=== PATIENT | male | born 1940 | race American Indian/Alaskan Native ===

== ENCOUNTER 2017-09-02 09:05 | Day surgery (SDC) | payer MEDICARE, OTHER ==
[~2017-09-02 09:05] MED LIST: MARCAINE 0.5% INFILTRATI ONE; NACL 0.9% 1000 ML 1,000 ML IV SCH; PEPCID PO NR
--- NOTE | 2017-09-02 09:54 | Anesthesia Consultation ---
Anesthesia Consult and Med Hx Date of service: 09/02/17 - Airway Anesthetic Teeth Evaluation: Bridges, Partials ROM Head & Neck: Adequate Mental/Hyoid Distance: Adequate Mallampati Class: Class II Intubation Access Assessment: Probably Good - Pulmonary Exam CTA: Yes - Cardiac Exam Cardiac Exam: RRR - Pre-Operative Health Status ASA Pre-Surgery Classification: ASA3 Proposed Anesthetic Plan: General - Pulmonary Hx Smoking: No Hx Respiratory Symptoms: Yes (h/o bronchitis) Hx Sleep Apnea: Yes (DX SLEEP APNEA , NO CPAP USE.) - Cardiovascular System Hx Hypertension: Yes (X 20 YRS) - Central Nervous System Hx Back Pain: Yes (BACK PAIN TO LEGS) - Gastrointestinal Hx Gastroesophageal Reflux Disease: Yes - Other Systems Hx Cancer: No - Additional Comments Anesthesia Medical History Comments: HLD, BPH. Informed consent obtained
--- NOTE | 2017-09-02 09:55 | Anesthesia Day of Surgery ---
Anesthesia Day of Surgery - Day of Surgery Patient Examined: Yes Patient H&P Reviewed: Yes Patient is NPO: Yes
[2017-09-02] MEDS ORDERED: PEPCID IV NR (10:00)
[2017-09-02] MEDS ORDERED: NACL 0.9% 1000 ML 1,000 ML IV SCH (10:00)
[2017-09-02] MEDS ORDERED: MARCAINE 0.5% 30 ML INFILTRATI ONE (10:25)
[2017-09-02] MEDS ORDERED: NEOSPORIN GU IR ONE ×2 (10:25→11:38)
[2017-09-02] MEDS ORDERED: DIPRIVAN 10 MG/ML IV ONE (10:38)
[2017-09-02] MEDS ORDERED: DILAUDID ONE (10:39)
[2017-09-02] MEDS: ANCEF/STERILE WATER 2 GM/20 ML IV NR ×2 (10:40→10:41)
[2017-09-02] MEDS ORDERED: MARCAINE 0.5% INFILTRATI ONE (11:55)
[2017-09-02] MEDS ORDERED: ZOFRAN ONE (12:01)
[2017-09-02] MEDS ORDERED: VERSED ONE (12:01)
[2017-09-02] MEDS ORDERED: NEOSTIGMINE ONE (12:01)
[2017-09-02] MEDS ORDERED: ROBINUL ONE (12:01)
[2017-09-02] MEDS ORDERED: ZEMURON IV ONE (12:01)
[2017-09-02] MEDS ORDERED: QUELICIN ONE (12:01)
[2017-09-02] MEDS ORDERED: XYLOCAINE MPF 2% ONE (12:01)
--- NOTE | 2017-09-02 12:15 | Short Stay Summary ---
Short Stay Documentation Date of service: 09/02/17 - History H&P: obtained from office - Allergies and Medications Current Medications: Allergies No Known Allergies Allergy (Verified 08/22/17 10:59) Home Medications Medication Instructions Recorded Confirmed Last Taken Type Cholecalciferol (Vitamin D3) 2,000 unit PO DAILY 08/22/17 09/02/17 08/30/17 17: 00 History [Vitamin D3] Finasteride [Proscar] 5 mg PO DAILY 08/22/17 09/02/17 09/01/17 19:00 History Multivit-Min/FA/Lycopen/Lutein 1 each PO DAILY 08/22/17 09/02/17 08/30/17 17:00 History [Centrum Silver Tablet] Simvastatin [Zocor TAB] 10 mg PO QHS 08/22/17 09/02/17 08/31/17 21:00 History Terazosin [Hytrin] 5 mg PO BID 08/22/17 09/02/17 09/02/17 06:00 History Zolpidem [Ambien] 10 mg PO QHS 08/22/17 09/02/17 08/28/17 22:00 History Active Medications Famotidine (Pepcid) 20 mg PO PREOP NR Stop: 09/02/17 23:59 Last Admin: 09/02/17 10:36 Dose: 20 mg Famotidine (Pepcid) 20 mg IV PREOP NR Stop: 09/02/17 23:59 Hydromorphone HCl (Dilaudid) 0.25 mg IV Q10MIN PRN PRN Reason: Pain, Moderate (4-6) Stop: 09/02/17 20:00 Sodium Chloride (Nacl 0.9% 1000 Ml) 1,000 mls @ 75 mls/hr IV DIRECT KEYLA - Brief post op/procedure progress note Date of procedure: 09/02/17 Pre-op diagnosis: rt hernia Post-op diagnosis: same Procedure: hernia repair with mesh Anesthesia: AZA Surgeon: KENYON FRYE Estimated blood loss: minimal Pathology: list (sac) Specimen disposition: to lab Condition: stable - Hospital course Hospital course: norco & post op info on chart - Disposition Condition at discharge: Stable Disposition: DC-01 TO HOME OR SELFCARE Short Stay Discharge Plan Follow up with: KELLEN PINA MD [Primary Care Provider] - 7 Days
[2017-09-02] MEDS: DILAUDID IV PRN ×2 (12:45→12:53)
[2017-09-02] MEDS ORDERED: DILAUDID IV PRN ×2 (13:22→14:00)
--- NOTE | 2017-09-02 13:22 | Post Anesthesia Evaluation ---
- Post Anesthesia Evaluation Patient Participated: Yes Airway Patent: Yes Stable Respiratory Function: Yes Nausea/Vomiting: No Temp > 96.8F: Yes Pain Manageable: Yes Adequeate Hydration: Yes Anesthesia Complications: No Block Receding Appropriately: Not Applicable Patient on Ventilator: No
--- NOTE | 2017-09-02 13:43 | Operative Report ---
PREOPERATIVE DIAGNOSIS: Right inguinal hernia. POSTOPERATIVE DIAGNOSIS: Right inguinal hernia. PROCEDURE: Right inguinal hernia repair with mesh. SURGEON: Gregorio Bradford MD ANESTHESIA: General. ESTIMATED BLOOD LOSS: Minimal. FLUIDS: Crystalloid. COMPLICATIONS: No complications. INDICATIONS: This 76-year-old gentleman seen in the office for scrotal pain as well as a history of back pain. Exam was consistent with right reducible golf ball size hernia. Risks, benefits, and complications were explained. The patient agreed to proceed with surgical intervention. DESCRIPTION OF PROCEDURE: The patient was taken to the operative suite, placed in a supine position. After adequate general anesthesia, he was prepped and draped in a sterile fashion. A right inguinal incision was made with the Bovie. Sharp dissection was taken down to the external oblique fascia. Spermatic cord was isolated. Fascia was opened in length of the incision. Ilioinguinal nerve could not be appreciated. Dissection revealed a hernia sac. No bowel was in the sac. It was dissected. A 0 silk suture ligature was used to close the sac. Specimen was sent for routine pathologic evaluation. Keyhole mesh was placed in the floor of the hernia. Shelving edge of Poupart's ligament was attached using 2-0 Ethibond in interrupted fashion as well as the conjoined tendon using 2-0 Ethibond in interrupted fashion. Copious irrigation was performed. Adequate hemostasis was achieved. Vas deferens and the spermatic cord uninjured. Subcutaneous tissue was injected with 0.25% Marcaine. External oblique fascia was closed with 2-0 Ethibond in interrupted fashion. Sona's fascia was closed with 3-0 Vicryl in a running fashion, hank on the skin, a dressing was placed. The patient tolerated the procedure well and was extubated and taken to recovery room. He will go home on [place] and follow up in the office. JOB# [id number] Cristel/SUSY
[2017-09-02] MEDS ORDERED: NORCO 5/325 PO PRN (13:45)
[2017-09-02] MEDS ORDERED: TORADOL IV ONE (15:06)
[2017-09-02] MEDS ORDERED: TORADOL IV NR (15:13)
[2017-09-02] MEDS ORDERED: NORCO 5/325 PO ONE (17:40)
[2017-09-02 22:00] VITALS: BP 143/93
== END 2017-09-02 17:46 | disposition home or self-care (01) ==
LOC: OR 09:05
PROVIDERS: ATTEND Urology
DX: K40.90 Unilateral inguinal hernia, without obstruction or gangrene, not specified as recurrent (principal); K21.9 Gastro-esophageal reflux disease without esophagitis; I10 Essential (primary) hypertension; N40.0 Benign prostatic hyperplasia without lower urinary tract symptoms; G47.30 Sleep apnea, unspecified
CPT/HCPCS: 49505; 88302; C1781; J0330; J1170; J1885; J2250; J2405; J2704; J2710; J7030

== ENCOUNTER 2017-09-05 09:22 | Emergency (ER) | payer MEDICARE, OTHER ==
--- NOTE | 2017-09-05 11:19 | XRay Report ---
RIGHT SHOULDER, 3 VIEWS: HISTORY: right shoulder pain. The right humeral head is high riding with respect to the glenoid consistent with a chronic rotator cuff tear. There are moderate osteoarthritic changes at the right shoulder. No evidence for fracture, dislocation or ligamentous injury. IMPRESSION: Chronic rotator cuff tear. Osteoarthritis.
--- NOTE | 2017-09-05 11:20 | XRay Report ---
RIGHT HIP, 2 views: History: Pain. Surgical hank overlying the right groin region are identified suggesting hernia repair, correlate with history. Mild osteopenia. Mild osteoarthritic changes identified at the right hip. No evidence for fracture, dislocation or osteonecrosis. IMPRESSION: No acute process.
--- NOTE | 2017-09-05 11:20 | XRay Report ---
RIGHT KNEE, 3 views: History: Pain. Mild osteopenia. Minimal retropatellar spurring is identified. The medial and lateral compartments are within normal limits. No evidence for fracture, bone lesion or large joint effusion. IMPRESSION: Minimal osteoarthritis. Osteopenia.
--- NOTE | 2017-09-05 11:21 | XRay Report ---
RIGHT TIBIA AND FIBULA, ONE VIEW History: Pain. Findings: Mild osteopenia. The tibia and fibula are grossly intact. No fracture or bony destruction. The soft tissues are unremarkable. Impression: Osteopenia.
[2017-09-05] MEDS ORDERED: ZOFRAN IM ONE (14:55)
[2017-09-05] MEDS ORDERED: MORPHINE IM ONE (14:55)
--- NOTE | 2017-09-05 15:05 | Emergency Department Report ---
ED General Adult HPI - General Chief complaint: Extremity Problem,Nontraumatic Stated complaint: HIP/LEG PAIN Time Seen by Provider: 09/05/17 14:43 Source: patient Mode of arrival: Ambulatory Limitations: Physical Limitation - History of Present Illness Initial comments: Patient is 76 years old male history of hypertension and GERD, status post recent right hernia repair last Saturday. Patient stated that since yesterday has been having right hip, right shoulder pain. He also stated that he been having right leg pain and swelling since his surgery. Patient denied any chest pain, shortness of breath or abdominal pain. He also stated that he did not pass stool for the last 7 days but he admitted passing gas. - Related Data Home Medications Medication Instructions Recorded Confirmed Last Taken Cholecalciferol (Vitamin D3) 2,000 unit PO DAILY 08/22/17 09/02/17 08/30/17 17: 00 [Vitamin D3] Finasteride [Proscar] 5 mg PO DAILY 08/22/17 09/02/17 09/01/17 19:00 Multivit-Min/FA/Lycopen/Lutein 1 each PO DAILY 08/22/17 09/02/17 08/30/17 17:00 [Centrum Silver Tablet] Simvastatin [Zocor TAB] 10 mg PO QHS 08/22/17 09/02/17 08/31/17 21:00 Terazosin [Hytrin] 5 mg PO BID 08/22/17 09/02/17 09/02/17 06:00 Zolpidem [Ambien] 10 mg PO QHS 08/22/17 09/02/17 08/28/17 22:00 Previous Rx's Medication Instructions Recorded Last Taken Type Docusate Sodium [Colace] 100 mg PO BID PRN #60 capsule 09/05/17 Unknown Rx Lactulose 10 gm PO DAILY PRN #150 ml 09/05/17 Unknown Rx Ondansetron [Zofran Odt] 4 mg PO Q8HR PRN #14 tab.rapdis 09/05/17 Unknown Rx oxyCODONE /ACETAMINOPHEN [Percocet 1 tab PO Q6HR PRN #14 tablet 09/05/17 Unknown Rx 5/325] Allergies Allergy/AdvReac Type Severity Reaction Status Date / Time No Known Allergies Allergy Verified 08/22/17 10:59 ED Review of Systems ROS: Stated complaint: HIP/LEG PAIN Other details as noted in HPI Comment: All other systems reviewed and negative Constitutional: denies: chills, fever Respiratory: denies: cough, shortness of breath, SOB with exertion Cardiovascular: denies: chest pain, palpitations, dyspnea on exertion Gastrointestinal: constipation. denies: abdominal pain, nausea, vomiting, diarrhea, hematemesis, melena, hematochezia Genitourinary: denies: urgency, dysuria, frequency, hematuria Musculoskeletal: denies: back pain Neurological: denies: headache, weakness, numbness, paresthesias ED Past Medical Hx - Past Medical History Hx Hypertension: Yes (X 20 YRS) Hx GERD: Yes Hx HIV: No - Surgical History Past Surgical History?: Yes Additional Surgical History: HERNIA ON SATURDAY - Social History Smoking Status: Never Smoker Substance Use Type: None, Alcohol - Medications Home Medications: Home Medications Medication Instructions Recorded Confirmed Last Taken Type Cholecalciferol (Vitamin D3) 2,000 unit PO DAILY 08/22/17 09/02/17 08/30/17 17: 00 History [Vitamin D3] Finasteride [Proscar] 5 mg PO DAILY 08/22/17 09/02/17 09/01/17 19:00 History Multivit-Min/FA/Lycopen/Lutein 1 each PO DAILY 08/22/17 09/02/17 08/30/17 17:00 History [Centrum Silver Tablet] Simvastatin [Zocor TAB] 10 mg PO QHS 08/22/17 09/02/17 08/31/17 21:00 History Terazosin [Hytrin] 5 mg PO BID 08/22/17 09/02/17 09/02/17 06:00 History Zolpidem [Ambien] 10 mg PO QHS 08/22/17 09/02/17 08/28/17 22:00 History Docusate Sodium [Colace] 100 mg PO BID PRN #60 capsule 09/05/17 Unknown Rx Lactulose 10 gm PO DAILY PRN #150 ml 09/05/17 Unknown Rx Ondansetron [Zofran Odt] 4 mg PO Q8HR PRN #14 tab.rapdis 09/05/17 Unknown Rx oxyCODONE /ACETAMINOPHEN [Percocet 1 tab PO Q6HR PRN #14 tablet 09/05/17 Unknown Rx 5/325] ED Physical Exam - General Limitations: Physical Limitation General appearance: alert, in no apparent distress - Head Head exam: Present: atraumatic, normocephalic, normal inspection - Eye Eye exam: Present: normal appearance, PERRL - ENT ENT exam: Present: normal exam, normal orophraynx, mucous membranes moist - Neck Neck exam: Present: normal inspection, full ROM. Absent: tenderness, meningismus, lymphadenopathy, thyromegaly - Respiratory Respiratory exam: Present: normal lung sounds bilaterally. Absent: respiratory distress, wheezes, rales, rhonchi, chest wall tenderness, accessory muscle use, decreased breath sounds, prolonged expiratory - Cardiovascular Cardiovascular Exam: Present: regular rate, normal rhythm, normal heart sounds - GI/Abdominal GI/Abdominal exam: Present: soft, normal bowel sounds. Absent: distended, tenderness, guarding, rebound, rigid, organomegaly, mass, bruit, pulsatile mass , hernia - Extremities Exam Extremities exam: Present: normal inspection, full ROM, normal capillary refill - Back Exam Back exam: Present: normal inspection, full ROM. Absent: tenderness, CVA tenderness (R), CVA tenderness (L), muscle spasm, paraspinal tenderness, vertebral tenderness - Neurological Exam Neurological exam: Present: alert, oriented X3, CN II-XII intact - Skin Skin exam: Present: warm, intact, normal color ED Course Vital Signs 09/05/17 09/05/17 10:03 16:11 Temperature 98.1 F Pulse Rate 78 73 Respiratory 20 16 Rate Blood Pressure 159/89 Blood Pressure 126/90 [Left] O2 Sat by Pulse 97 96 Oximetry - Reevaluation(s) Reevaluation #1: 09/05/17 17:23 Patient stated that he is feeling much better. Eating snack in no acute distress. I advised patient to follow up with his primary care physician for a possible referral to orthopedics for his right hip pain. ED Medical Decision Making - Lab Data Result diagrams: 09/05/17 15:30 09/05/17 15:30 - Radiology Data Radiology results: report reviewed No evidence of DVT in the right lower extremity. Referring Physician: ORESTES ROTHMAN Patient Name: JARED HARRISON Date of : 1940 Sex: Male Report Date: 2017-09-05 Report Status: Finalized Findings [facility] [address] [place] [address] XRay Report Signed Patient: JARED HARRISON MR#: [id number] : 1940 Acct:[id number] Age/Sex: 76 / M ADM Date: 09/05/17 Loc: ED Attending Dr: Ordering Physician: ORESTES ROTHMAN Date of Service: 09/05/17 Procedure(s): XR abd series w cxr 1V Accession Number(s): [id number] cc: ORESTES ROTHMAN Fluoro Time In Minutes: FINAL REPORT PROCEDURE: Abdominal series. TECHNIQUE: Supine and upright views of the abdomen, PA chest. HISTORY: Abdominal pain. COMPARISON: No prior studies are available for comparison. FINDINGS: The heart size is normal. There is moderate tortuosity in the thoracic aorta. The lungs are clear and well expanded. There are no pleural effusions. There is no evidence of pneumoperitoneum. The bowel gas pattern is normal. The soft tissues and regional skeleton are unremarkable. There are skin hank in the right inguinal region. IMPRESSION: No evidence of acute abdominal disease. Transcribed By: MRM Dictated By: SRINIVASAN MARC MD Electronically Authenticated By: SRINIVASAN MARC MD Signed Date/Time: 09/05/17 1231 DD/ 1231 TD/TT: 09/05/17 1231 Critical care attestation.: If time is entered above; I have spent that time in minutes in the direct care of this critically ill patient, excluding procedure time. ED Disposition Clinical Impression: Hip pain, right, Shoulder pain, acute, Leg pain, right, Constipation Disposition: - TO HOME OR SELFCARE Is pt being admited?: No Condition: Stable Instructions: Arthralgia (ED), High Fiber Diet (ED), Constipation (ED) Prescriptions: Docusate Sodium [Colace] 100 mg PO BID PRN #60 capsule PRN Reason: Constipation Lactulose 10 gm PO DAILY PRN #150 ml PRN Reason: Constipation Ondansetron [Zofran Odt] 4 mg PO Q8HR PRN #14 tab.rapdis PRN Reason: Nausea And Vomiting oxyCODONE /ACETAMINOPHEN [Percocet 5/325] 1 tab PO Q6HR PRN #14 tablet PRN Reason: Pain Referrals: KELLEN PINA MD [Primary Care Provider] - 3-5 Days
[2017-09-05 16:02] LABS: Basophils % (Auto) 0.6 % (0.0-1.8); Eosinophils % (Auto) 0.5 % (0.0-4.3); Hematocrit 41.6 % (35.5-45.6); Hemoglobin 13.9 gm/dl (11.8-15.2); Lymphocytes # (Auto) 1.6 K/mm3 (1.2-5.4); Lymphocytes % (Auto) 21.6 % (13.4-35.0); Mean Corpuscular HGB Conc 34 % (32-34); Mean Corpuscular Hemoglobin 33 pg (28-32); Mean Corpuscular Volume 99 fl (84-94); Monocytes # (Auto) 0.7 K/mm3 (0.0-0.8); Platelet Count 198 K/mm3 (140-440); Red Blood Count 4.21 M/mm3 (3.65-5.03); Red Cell Distribution Width 13.2 % (13.2-15.2)
[2017-09-05 16:12] VITALS: BP 126/90
[2017-09-05 16:15] LABS: Alanine Aminotransferase 17 units/L (7-56); Albumin 4.1 g/dL (3.9-5); BUN/Creatinine Ratio 13; Blood Urea Nitrogen 9 mg/dL (9-20); Calcium 9.3 mg/dL (8.4-10.2); Hemolysis Index 4; INR 1.07 (0.87-1.13); Partial Thromboplastin Time 29.8 Sec. (24.2-36.6)
--- NOTE | 2017-09-05 16:34 | XRay Report ---
FINAL REPORT PROCEDURE: Abdominal series. TECHNIQUE: Supine and upright views of the abdomen, PA chest. HISTORY: Abdominal pain. COMPARISON: No prior studies are available for comparison. FINDINGS: The heart size is normal. There is moderate tortuosity in the thoracic aorta. The lungs are clear and well expanded. There are no pleural effusions. There is no evidence of pneumoperitoneum. The bowel gas pattern is normal. The soft tissues and regional skeleton are unremarkable. There are skin hank in the right inguinal region. IMPRESSION: No evidence of acute abdominal disease.
== END 2017-09-05 17:55 | disposition home or self-care (01) ==
LOC: ED 09:22
DX: M25.551 Pain in right hip (principal); M25.511 Pain in right shoulder; M79.604 Pain in right leg; K59.00 Constipation, unspecified; K21.9 Gastro-esophageal reflux disease without esophagitis
CPT/HCPCS: 36415; 73030; 73502; 73562; 73590; 74022; 80053; 85025; 85610; 85730; 93971; 96372; 99284; J2270; J2405

== ENCOUNTER 2017-10-30 13:44 | Outpatient (CLI) | payer MEDICARE, OTHER ==
--- NOTE | 2017-10-30 16:33 | Cat Scan Report ---
FINAL REPORT PROCEDURE: CT ABDOMEN PELVIS WO CON TECHNIQUE: Computerized axial tomography of the abdomen and pelvis was performed without intravenous contrast. This study is performed without intravascular contrast material and its sensitivity for abdominal and pelvic pathology, including neoplasms, inflammation, abscess, free fluid, thrombosis, arterial dissection and infarction, is reduced compared with a contrast enhanced study. HISTORY: PELVIC AND PERINEAL PAIN,ABDOMINAL PAIN COMPARISON: No prior studies are available for comparison. FINDINGS: Lower Lung hernandez: There is a small amount of dependent atelectasis. Calcifications are seen in the coronary arteries indicating atherosclerotic disease. Upper Abdomen: Calcified granuloma seen in the liver which is otherwise unremarkable. The gallbladder showed no abnormalities. The adrenal glands, the pancreas and spleen are unremarkable. Kidneys, Ureters and Urinary bladder: There are multiple low-density nodules within and projecting from the renal cortex of the right and left kidneys which appear to represent multiple renal cortical cyst. The largest measures 6.7 centimeters in the upper 3rd of the right kidney. This could be confirmed with ultrasound if clinically indicated. No calculi or hydronephrosis visualized. No ureteral calculi are seen. Urinary bladder is only partially filled and shows no focal abnormality. Calcifications are seen in the lower pelvis which appear to represent phleboliths. Retroperitoneum: Atherosclerotic changes are seen in the abdominal aorta and iliac arteries. No aneurysm is visualized. Nonspecific subcentimeter lymph nodes are seen in the retroperitoneum. No pathologically enlarged lymph nodes are identified. Bowel: No focal bowel loop abnormalities are identified. No evidence of bowel obstruction ascites or free intraperitoneal gas. Normal-appearing appendix appears to be visualized in the right lower quadrant. Reproductive organs: There is nonspecific diffuse prostate enlargement. Penile implants partially visualized. Other: There is approximately 5 millimeters retrolisthesis L5 in relation S1. This appears to be degenerative. There is advanced facet arthritis at the L4-5 level. No acute bony abnormalities are seen. Strandy subcutaneous densities seen in the region of the right groin. This could be secondary to recent procedure or scarring from previous procedure. I cannot exclude acute trauma or inflammatory/infectious response such as cellulitis. No hernias are identified. IMPRESSION: Multiple renal cortical cysts appear to be present as described. This could be confirmed with ultrasound if clinically indicated. Prior granulomatous disease. Atherosclerosis coronary arteries. Nonspecific diffuse prostate enlargement. Penile implant partially visualized. Retrolisthesis L5 in relation S1 as described above. Strandy subcutaneous densities right groin as described above..
== END 2017-10-30 13:45 | disposition home or self-care (01) ==
LOC: CT 13:44
PROVIDERS: ATTEND Urology
DX: N40.0 Benign prostatic hyperplasia without lower urinary tract symptoms (principal); J98.11 Atelectasis; I25.10 Atherosclerotic heart disease of native coronary artery without angina pectoris; K75.3 Granulomatous hepatitis, not elsewhere classified; M47.896 Other spondylosis, lumbar region; I70.0 Atherosclerosis of aorta; R10.2 Pelvic and perineal pain; Z95.828 Presence of other vascular implants and grafts
CPT/HCPCS: 74176